=== PATIENT | female | born 1955 | race Caucasian/White ===

== ENCOUNTER 2024-11-17 07:36 | Outpatient (CLI) | payer MEDICARE, SELFPAY | END 2024-11-17 07:37 | disposition home or self-care (01) | LOC: ANHAUDIO 07:37 | PROVIDERS: PCP Family Medicine; Visit Provider Emergency Medicine | DX: H92.09 Otalgia, unspecified ear (principal); H74.8X3 Other specified disorders of middle ear and mastoid, bilateral; H73.893 Other specified disorders of tympanic membrane, bilateral; Z86.69 Personal history of other diseases of the nervous system and sense organs; R42 Dizziness and giddiness | CPT/HCPCS: 92557; 92567 ==